=== PATIENT | male | born 1950 | race Two or more races ===

== ENCOUNTER 2023-02-17 08:17 | Inpatient (IN) | payer OTHER ==
[~2023-02-17] VITALS: Ht 167.6 cm; Wt 84.0 kg
[2023-02-17] MEDS ORDERED: ASPirin 81 mg TAB PO ONE ×2 (09:30→13:45)
[2023-02-17] MEDS ORDERED: NITROGLYCERIN 0.4 MG SL TAB SL PRN (09:30)
[2023-02-17] MEDS ORDERED: ACETAMINOPHEN 325 MG TAB PO PRN (09:30)
[2023-02-17] MEDS ORDERED: ONDANSETRON HCL 4 MG/2 ML VIAL IV PRN (09:30)
[2023-02-17] MEDS ORDERED: MORPHINE SULFATE INJ 2 MG/ml SYRG IV PRN (09:30)
[2023-02-17] MEDS ORDERED: MORPHINE SULFATE 4 MG/ML SYR/VIAL IV PRN (09:30)
[2023-02-17 09:34] VITALS: BP 134/91; PULSE 68; RESP 18; TEMP 97.5; O2SAT 100
[2023-02-17] MEDS ORDERED: FUROSEMIDE 20 MG/2 ML VIAL IV ONE ×2 (09:45→12:45)
[2023-02-17] MEDS ORDERED: ENOXAPARIN SOD 40 MG/0.4 ML SYRINGE SC SCH (10:00)
[2023-02-17] MEDS ORDERED: OPTISON 3ml Vial for INJ IV ONE (11:30)
[2023-02-17] MEDS ORDERED: GADOTERATE MEG 10 MMOL/20ml INJ (0.5MMOL/ml) IV ONE (11:56)
[2023-02-17] MEDS ORDERED: HEPARIN DRIP/D5W 100UNITS/ML 250 ML IV SCH ×2 (12:15→21:45)
[2023-02-17] MEDS ORDERED: HEPARIN SODIUM (PORCINE) 5000 UNITS/ML 1ML VIAL IV ONE (12:15)
[2023-02-17 13:00] VITALS: BP 128/74; PULSE 74; RESP 21; TEMP 98.2; O2SAT 98
[2023-02-17 13:05] LABS: Potassium 4.6 mmol/L (3.5-5.1)
[2023-02-17 13:07] LABS: INR 1.15 (0.9-1.15); Partial Thromboplastin Time 31.5 SEC (24.5-34.5)
[2023-02-17 13:14] LABS: Albumin 3.5 g/dL (3.4-5.0); Bilirubin, Total 0.8 mg/dL (0.2-1.0); Calcium 8.3 mg/dL (8.5-10.1); Total Protein 6.4 g/dL (6.4-8.2)
[2023-02-17 13:50] LABS: Cholesterol 182 mg/dL (< 200); Triglycerides 129 mg/dL (< 150)
[2023-02-17 13:52] LABS: HDL Cholesterol 49 mg/dL (40-59); LDL Cholesterol 117 mg/dL (< 100)
[2023-02-17 14:20] LABS: Basophils # (auto) 0 10 ^3/uL (0-0.2); Basophils % (auto) 0.5 % (0.0-2.0); Eosinophils # (auto) 0.2 10 ^3/uL (0-0.8); Eosinophils % (auto) 2.8 % (0.0-7.0); Hematocrit 43.3 % (41.0-53.0); Hemoglobin 14.2 g/dL (13.5-17.5); Lymphocytes # (auto) 1.8 10 ^3/uL (0.4-5.4); Lymphocytes % (auto) 31.3 % (10.0-50.0); Mean Corpuscular Hemoglobin 31.1 pg (28.0-32.0); Mean Corpuscular Hgb Conc. 32.7 g/dL (32.0-36.0); Mean Corpuscular Volume 94.9 fL (80.0-100.0); Monocytes # (auto) 0.3 10 ^3/uL (0-1.3); Neutrophils # (auto) 3.5 10 ^3/uL (1.6-8.6); Neutrophils % (auto) 60.4 % (37.0-80.0); Nucleated Red Blood Cells % 0.3 %; Red Blood Cells 4.56 10^6/uL (4.5-5.90); Red Cell Distribution Width 14.7 % (11.8-14.3); White Blood Cell 5.7 10^3/uL (4.4-10.8)
[2023-02-17] MEDS: FUROSEMIDE 40 MG/4 ML VIAL IV SCH (17:59)
[2023-02-17 20:00] VITALS: PULSE 74
[2023-02-17 20:30] VITALS: PULSE 79; RESP 20; O2SAT 97
[2023-02-17 21:33] LABS: INR 1.16 (0.9-1.15); Partial Thromboplastin Time 39.9 SEC (24.5-34.5); Prothrombin Time 12.1 sec (9.3-11.8)
[2023-02-17 22:00] VITALS: BP 150/96; PULSE 79; RESP 20; TEMP 97.7; O2SAT 97
[2023-02-17] MEDS ORDERED: ATORVASTATIN 20 MG TAB PO SCH ×2 (22:00)
[2023-02-18] VITALS (20 sets, daily range): BP systolic 129–163; BP diastolic 82–114; PULSE 62–86; RESP 12–22; TEMP 97.5–98.5; O2SAT 90–100
[2023-02-18 04:29] LABS: Basophils # (auto) 0 10 ^3/uL (0-0.2); Basophils % (auto) 0.6 % (0.0-2.0); Eosinophils # (auto) 0.3 10 ^3/uL (0-0.8); Eosinophils % (auto) 4.3 % (0.0-7.0); Hematocrit 41.4 % (41.0-53.0); Hemoglobin 13.9 g/dL (13.5-17.5); INR 1.16 (0.9-1.15); Lymphocytes # (auto) 2.3 10 ^3/uL (0.4-5.4); Lymphocytes % (auto) 39.6 % (10.0-50.0); Mean Corpuscular Hemoglobin 31.3 pg (28.0-32.0); Mean Corpuscular Hgb Conc. 33.5 g/dL (32.0-36.0); Mean Corpuscular Volume 93.5 fL (80.0-100.0); Monocytes # (auto) 0.4 10 ^3/uL (0-1.3); Monocytes % (auto) 6.2 % (0.0-12.0); Neutrophils # (auto) 2.9 10 ^3/uL (1.6-8.6); Neutrophils % (auto) 49.3 % (37.0-80.0); Nucleated Red Blood Cells % 0.2 %; Partial Thromboplastin Time 57.6 SEC (24.5-34.5); Prothrombin Time 12.1 sec (9.3-11.8); Red Blood Cells 4.43 10^6/uL (4.5-5.90); Red Cell Distribution Width 14.7 % (11.8-14.3); White Blood Cell 5.8 10^3/uL (4.4-10.8)
[2023-02-18] MEDS: FUROSEMIDE 40 MG/4 ML VIAL IV SCH ×2 (06:16→17:53)
[2023-02-18] MEDS: EMPAGLIFLOZIN 10 MG TAB PO SCH (06:16)
[2023-02-18 07:55] LABS: BUN/Creatinine Ratio 17.8 (10.0-20.0); Calcium 8.7 mg/dL (8.5-10.1); Potassium 3.8 mmol/L (3.5-5.1)
[2023-02-18] MEDS ORDERED: VERAPAMIL 2.5MG/ML INJ 2ML VIAL IV ONE (09:54)
[2023-02-18] MEDS ORDERED: HEPARIN SODIUM (PORCINE) 5000 UNITS/ML 1ML VIAL ONE (09:55)
[2023-02-18] MEDS ORDERED: MIDAZOLAM HCL 2MG/2ML 2ml VIAL (1mg/ml) ONE (12:05)
[2023-02-18] MEDS ORDERED: LIDOCAINE 2%HCL (LOCAL ANESTH.) INJ 20ML MDV ONE (12:05)
[2023-02-18] MEDS ORDERED: IODIXANOL 320MG/ML 100ML BTL IV ONE ×2 (12:05→12:36)
[2023-02-18] MEDS ORDERED: fentaNYL CITRATE 100 MCG/2 ML VL ONE (12:05)
[2023-02-18] MEDS: ASPirin 81 mg TAB PO SCH (14:22)
[2023-02-18] MEDS: SPIRONOLACTONE 25 MG TAB PO SCH (14:26)
[2023-02-18] MEDS: LOSARTAN POTASSIUM 25 MG TAB PO SCH (14:26)
[2023-02-18] MEDS: CARVEDILOL 3.125 MG TAB PO SCH ×2 (14:27→22:13)
[2023-02-18 15:39] LABS: INR 1.15 (0.9-1.15)
[2023-02-18 15:46] LABS: Partial Thromboplastin Time 80.2 SEC (24.5-34.5)
[2023-02-18 19:51] LABS: INR 1.13 (0.9-1.15); Prothrombin Time 11.8 sec (9.3-11.8)
[2023-02-18] MEDS ORDERED: ATORVASTATIN 20 MG TAB PO SCH (22:00)
[2023-02-19 05:00] VITALS: BP 144/99; PULSE 69; RESP 18; TEMP 97.1; O2SAT 97
[2023-02-19] MEDS: FUROSEMIDE 40 MG/4 ML VIAL IV SCH (06:53)
[2023-02-19] MEDS: EMPAGLIFLOZIN 10 MG TAB PO SCH (06:57)
[2023-02-19 08:00] VITALS: PULSE 80
[2023-02-19 08:30] VITALS: BP 147/99; PULSE 72; RESP 18; TEMP 97.8; O2SAT 96
[2023-02-19] MEDS ORDERED: SPIR25TA PO (09:21)
[2023-02-19] MEDS ORDERED: LOS25T PO (09:21)
[2023-02-19] MEDS ORDERED: FURO20TA3 PO (09:21)
[2023-02-19] MEDS ORDERED: ATOR20TA50 PO (09:21)
[2023-02-19] MEDS ORDERED: CAR3125T PO (09:21)
[2023-02-19] MEDS ORDERED: ASPI-325 PO (09:21)
[2023-02-19 09:36] LABS: BUN/Creatinine Ratio 15.3 (10.0-20.0); Calcium 9.2 mg/dL (8.5-10.1); Magnesium 2.6 mg/dL (1.6-2.6); Potassium 3.7 mmol/L (3.5-5.1)
[2023-02-19] MEDS ORDERED: POTASSIUM CHL 20 Meq TABLET PO ONE (09:45)
[2023-02-19] MEDS: ASPirin 81 mg TAB PO SCH (09:50)
[2023-02-19] MEDS: SPIRONOLACTONE 25 MG TAB PO SCH (09:50)
[2023-02-19] MEDS: CARVEDILOL 3.125 MG TAB PO SCH (09:51)
[2023-02-19] MEDS: LOSARTAN POTASSIUM 25 MG TAB PO SCH (09:51)
[2023-02-19 10:30] VITALS: BP 147/99; PULSE 72; TEMP 36.6
== END 2023-02-19 11:45 | disposition home health service (06) | DRG 280 ==
LOC: UNDOADMIN 08:17 → TELE-CENTR 08:17 → OBSVTOIN 02-18 12:02
PROVIDERS: ADMIT Hospitalist; ATTEND Hospitalist
PROC: 4A023N7 Measurement of Cardiac Sampling and Pressure, Left Heart, Percutaneous Approach (ICD-10-PCS; principal; 2023-02-18)
PROC: B211YZZ Fluoroscopy of Multiple Coronary Arteries using Other Contrast (ICD-10-PCS; 2023-02-18)
PROC: B215YZZ Fluoroscopy of Left Heart using Other Contrast (ICD-10-PCS; 2023-02-18)
DX: I21.4 Non-ST elevation (NSTEMI) myocardial infarction (principal); I50.23 Acute on chronic systolic (congestive) heart failure; I42.8 Other cardiomyopathies; I11.0 Hypertensive heart disease with heart failure; E78.5 Hyperlipidemia, unspecified; E66.9 Obesity, unspecified; Z68.29 Body mass index [BMI] 29.0-29.9, adult; Z91.148 Patient's other noncompliance with medication regimen for other reason; Z87.891 Personal history of nicotine dependence; Z88.5 Allergy status to narcotic agent
CPT/HCPCS: 36415; 71045; 80048; 80053; 80061; 83036; 83735; 83880; 84443; 84484; 85025; 85610; 85730; 86850; 86900; 86901; 87081; 93306; 93458; 99152; G0378; J2250; Q9956; Q9967

== ENCOUNTER 2024-10-01 06:56 | Emergency (ER) | payer OTHER ==
[~2024-10-01] VITALS: Ht 165.1 cm; Wt 92.0 kg
[~2024-10-01 06:56] MED LIST: ASPI-325 PO; ATOR20TA50 PO; CARV-214 PO; FURO20TA3 PO; LOS25T PO; SPIR25TA PO
[2024-10-01 07:44] VITALS: BP 170/86; PULSE 50; RESP 18; TEMP 97.6; O2SAT 100
[2024-10-01] MEDS: ACETAMINOPHEN 500 MG TAB or CAP PO ONE (07:54)
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
[2024-10-01] MEDS ORDERED: TRAM50TA2 PO (08:34)
[2024-10-01] MEDS ORDERED: METH-1182 PO (08:34)
== END 2024-10-01 08:40 | disposition home or self-care (01) ==
LOC: EEVIPCON 06:56 → ER 06:56
DX: S16.1XXA Strain of muscle, fascia and tendon at neck level, initial encounter (principal); S83.92XA Sprain of unspecified site of left knee, initial encounter; I11.0 Hypertensive heart disease with heart failure; I50.9 Heart failure, unspecified; Z79.82 Long term (current) use of aspirin; Z79.899 Other long term (current) drug therapy; Z88.5 Allergy status to narcotic agent; V89.2XXA Person injured in unspecified motor-vehicle accident, traffic, initial encounter; Y93.89 Activity, other specified; Y92.481 Parking lot as the place of occurrence of the external cause; Y99.8 Other external cause status
CPT/HCPCS: 72040; 73562